=== PATIENT | male | born 1985 | race Caucasian/White ===

== ENCOUNTER 2019-03-03 08:30 | Inpatient (IN) | payer MEDICAID ==
[~2019-03-03] VITALS: Ht 172.7 cm; Wt 87.0 kg
[~2019-03-03 08:30] MED LIST: PANT40TA2 PO; POLY335015 PO; PRE5T PO
[2019-03-03 09:41] LABS: Basophils # (auto) 0.1 uL; Eosinophils # (auto) 0 uL; Lymphocytes # (auto) 0.8 uL
[2019-03-03 09:43] LABS: Basophils % (auto) 0.5 % (0.0-2.0); Eosinophils % (auto) 0.4 % (0.0-7.0); Hematocrit 43.4 % (41.0-53.0); Hemoglobin 14.5 g/dL (13.5-17.5); Mean Corpuscular Hemoglobin 25.1 pg (28.0-32.0); Mean Corpuscular Hgb Conc. 33.3 g/dL (32.0-36.0); Mean Corpuscular Volume 75.2 fL (80.0-100.0); Monocytes # (auto) 0.6 uL; Monocytes % (auto) 5.2 % (0.0-12.0); Neutrophils # (auto) 9.4 uL; Neutrophils % (auto) 86.9 % (37.0-80.0); Platelet Count (auto) 379 10^3/uL (140-450); Red Blood Cells 5.78 10^6/uL (4.5-5.90); Red Cell Distribution Width 16.6 % (11.8-14.3); White Blood Cell 10.8 10^3/uL (4.4-10.8)
[2019-03-03] MEDS ORDERED: ONDANSETRON HCL 4 MG/2 ML VIAL IV ONE (09:45)
[2019-03-03] MEDS ORDERED: MORPHINE SULFATE 4 MG/ML SYR/VIAL IV ONE (09:45)
[2019-03-03] MEDS ORDERED: SODIUM CHLORIDE 0.9% 1,000 ML IV ONE ×2 (09:45→11:45)
[2019-03-03] MEDS ORDERED: metroNIDAZOLE 500MG/100ML 100 ML IV ONE (10:00)
[2019-03-03] MEDS ORDERED: cefTRIAXone 1GM/50ML D5W 50 ML IV ONE (10:00)
[2019-03-03 10:04] LABS: Albumin 3.9 g/dL (3.4-5.0); Calcium 9.1 mg/dL (8.5-10.1); Potassium 4.1 mmol/L (3.5-5.1)
[2019-03-03 10:11] LABS: BUN/Creatinine Ratio 13.2; Bilirubin, Total 0.5 mg/dL (0.2-1.0); Total Protein 8.3 g/dL (6.4-8.2)
[2019-03-03 10:13] LABS: INR 0.96 (0.9-1.15); Partial Thromboplastin Time 27.7 sec (23.64-32.05)
[2019-03-03 10:54] LABS: Lactic Acid w/Reflex 2.5 mmol/L (0.4-2.0)
[2019-03-03] MEDS ORDERED: HYDROmorphone HCL 2 MG/ML VL IV ONE (11:00)
[2019-03-03] MEDS: HYDROmorphone HCL 2 MG/ML VL IV PRN ×3 (14:30→22:40)
[2019-03-03] MEDS: SODIUM CHLORIDE 0.9% 1,000 ML IV SCH (15:22)
[2019-03-03] MEDS: LEVOFLOXACIN 500MG 100 ML IV SCH (15:32)
--- NOTE | 2019-03-03 15:55 | NUR ---
Pt Arrived On Unit Pt ambulated from stretcher to room. Pt is a/ox4 with no s/s of distress or SOB. Pt states he is in some mild pain 4/10 after ambulating. Safety measures maintained with call light within reach, bed in lowest position and side rails up. Will continue to monitor for changes q1hr and prn. VS 121/71 BP R15, HR 78, 100% O2, 99.1 Temp
[2019-03-03 16:12] VITALS: BP 121/71
[2019-03-03] MEDS ORDERED: PNEUMOCOCCAL VACC POLYS 25 MCG/0.5 ML VIAL IM ONE (17:15)
[2019-03-03 18:49] LABS: Urine WBC None Seen /hpf (0 - 3)
--- NOTE | 2019-03-03 19:00 | NUR ---
Opening Shift Note Assumed care of patient, awake and alert. No S/S of distress/SOB or pain. Safety measures in place bed in lowest position, side rails x2 up, and call light within reach. Instructed on POC and to call for assist PRN, will continue to monitor for changes Q1hr and PRN.
[2019-03-03 19:16] LABS: Urine Bacteria NONE SEEN /hpf (None Seen); Urine Blood Negative /uL (Negative); Urine Mucus MANY (None Seen); Urine Specific Gravity 1.026 (1.001-1.035)
[2019-03-03 21:28] VITALS: BP 130/89
[2019-03-03] MEDS: HYDROCORTISONE SOD SUCC 100 MG/2ML INJ VIAL IV SCH (22:40)
[2019-03-03] MEDS: metroNIDAZOLE 500MG/100ML 100 ML IV SCH (22:41)
[2019-03-03] MEDS: FAMOTIDINE (10MG/ML) 2ML VL IV SCH (22:41)
[2019-03-04] MEDS: SODIUM CHLORIDE 0.9% 1,000 ML IV SCH ×3 (02:45→17:36)
[2019-03-04] MEDS: HYDROmorphone HCL 2 MG/ML VL IV PRN ×3 (02:50→17:39)
[2019-03-04 04:42] VITALS: BP 113/70
[2019-03-04 06:23] LABS: Basophils # (auto) 0 uL; Basophils % (auto) 0.1 % (0.0-2.0); Eosinophils # (auto) 0 uL; Eosinophils % (auto) 0.2 % (0.0-7.0); Hematocrit 39.2 % (41.0-53.0); Hemoglobin 13.1 g/dL (13.5-17.5); Lymphocytes # (auto) 0.8 uL; Lymphocytes % (auto) 9.1 % (10.0-50.0); Mean Corpuscular Hemoglobin 25.4 pg (28.0-32.0); Mean Corpuscular Hgb Conc. 33.5 g/dL (32.0-36.0); Mean Corpuscular Volume 75.8 fL (80.0-100.0); Monocytes % (auto) 11.8 % (0.0-12.0); Neutrophils # (auto) 6.7 uL; Neutrophils % (auto) 78.8 % (37.0-80.0); Platelet Count (auto) 326 10^3/uL (140-450); Red Blood Cells 5.17 10^6/uL (4.5-5.90); Red Cell Distribution Width 16.4 % (11.8-14.3); White Blood Cell 8.5 10^3/uL (4.4-10.8)
[2019-03-04] MEDS: metroNIDAZOLE 500MG/100ML 100 ML IV SCH ×3 (06:28→21:23)
[2019-03-04 06:38] LABS: Calcium 8.1 mg/dL (8.5-10.1); Potassium 4.1 mmol/L (3.5-5.1)
[2019-03-04 06:45] LABS: BUN/Creatinine Ratio 16.3; Bilirubin, Total 0.6 mg/dL (0.2-1.0); Total Protein 6.6 g/dL (6.4-8.2)
--- NOTE | 2019-03-04 07:29 | NUR ---
Opening Note Assumed pt care from [facility] nurse. Pt is a/ox4 with no s/s of distress or SOB. Pt is currently sitting up right in bed with no complaints. Pt states that he feel better compared to yesterday. Discussed POC with pt; pt verbalized understanding. Safety measures maintained with call light within reach, be din lowest position and side rails up. Will continue to monitor for changes q1hr and prn.
[2019-03-04] MEDS: HYDROCORTISONE SOD SUCC 100 MG/2ML INJ VIAL IV SCH ×2 (08:33→20:57)
[2019-03-04] MEDS: FAMOTIDINE (10MG/ML) 2ML VL IV SCH ×2 (08:33→20:57)
[2019-03-04] MEDS: LEVOFLOXACIN 500MG 100 ML IV SCH (08:33)
[2019-03-04 09:00] VITALS: BP 129/89
[2019-03-04] MEDS ORDERED: methylPREDNISolone SOD SUCC 125 MG/2 ML VL IV SCH (10:00)
--- NOTE | 2019-03-04 10:17 | NUR ---
Dr Kumar At bedside
[2019-03-04 13:00] VITALS: BP 119/82
[2019-03-04 17:00] VITALS: BP 124/79
--- NOTE | 2019-03-04 19:40 | NUR ---
received pt from day rn poc reviewed
[2019-03-04 22:16] VITALS: BP 124/84
--- NOTE | 2019-03-04 22:17 | NUR ---
resting comfortable no c/o pain at this time Signed: 03/04/19 at 2218 by Becki Fonseca RN
[2019-03-05 05:38] VITALS: BP 129/78
[2019-03-05] MEDS: metroNIDAZOLE 500MG/100ML 100 ML IV SCH (06:19)
[2019-03-05] MEDS: SODIUM CHLORIDE 0.9% 1,000 ML IV SCH ×2 (06:20→17:00)
[2019-03-05] MEDS: HYDROmorphone HCL 2 MG/ML VL IV PRN (06:21)
[2019-03-05 06:46] LABS: Basophils # (auto) 0 uL; Eosinophils # (auto) 0 uL; Hemoglobin 12.4 g/dL (13.5-17.5); Lymphocytes # (auto) 0.9 uL; Mean Corpuscular Hemoglobin 25.1 pg (28.0-32.0); Monocytes # (auto) 0.7 uL
[2019-03-05 06:50] LABS: Basophils % (auto) 0.4 % (0.0-2.0); Eosinophils % (auto) 0.4 % (0.0-7.0); Lymphocytes % (auto) 16.2 % (10.0-50.0); Mean Corpuscular Hgb Conc. 33.6 g/dL (32.0-36.0); Mean Corpuscular Volume 74.8 fL (80.0-100.0); Neutrophils # (auto) 3.9 uL; Platelet Count (auto) 292 10^3/uL (140-450); Red Blood Cells 4.94 10^6/uL (4.5-5.90); White Blood Cell 5.6 10^3/uL (4.4-10.8)
[2019-03-05 06:57] LABS: Albumin 2.9 g/dL (3.4-5.0); Calcium 8.3 mg/dL (8.5-10.1); Potassium 4.1 mmol/L (3.5-5.1)
--- NOTE | 2019-03-05 07:02 | NUR ---
report given to am nurse poc reviewed
[2019-03-05 07:03] LABS: BUN/Creatinine Ratio 10.2; Bilirubin, Total 0.5 mg/dL (0.2-1.0); Total Protein 6.6 g/dL (6.4-8.2)
--- NOTE | 2019-03-05 07:30 | NUR ---
Opening Shift Note Assumed care of patient, awake, alert, and oriented x4. No S/S of distress/SOB or pain. IV is in the right AC 22 gauge is asymptomatic, intact, patent, and saline locked. IV is in left AC 20 gauge and is asymptomatic, intact, patent, and infusing normal saline at 100 mL/hour. Bed is locked and in lowest position and call light is within reach. Instructed on POC and to call for assist PRN, and patient verbalized understanding. Will continue to monitor for changes Q1hr and PRN.
[2019-03-05 09:00] VITALS: BP 121/80
--- NOTE | 2019-03-05 09:00 | NUR ---
Dr. José MD, at bedside.
[2019-03-05] MEDS: LEVOFLOXACIN 500MG 100 ML IV SCH (10:00)
[2019-03-05] MEDS: HYDROCORTISONE SOD SUCC 100 MG/2ML INJ VIAL IV SCH (10:00)
[2019-03-05] MEDS: FAMOTIDINE (10MG/ML) 2ML VL IV SCH ×2 (10:00→21:31)
--- NOTE | 2019-03-05 11:40 | NUR ---
Estimated needs based on AJBW 74.2 kg-Increased factors for inflammatory bowel disease 3298-8014 kcal (30-35 kcal/kg) 89-103 g protein (1.2-1.4 g/kg) Addendum: 03/05/19 at [address] Amended: Links added.
[2019-03-05 13:00] VITALS: BP 133/95
--- NOTE | 2019-03-05 15:47 | NUR ---
Dr. Ellington, [employer] Special Agent, at bedside. New orders received.
[2019-03-05 17:00] VITALS: BP 141/99
--- NOTE | 2019-03-05 19:40 | NUR ---
Opening Shift Note Assumed care of patient, awake and alert. No S/S of distress/SOB or pain. Instructed on POC and to call for assist PRN, will continue to monitor for changes Q1hr and PRN.
[2019-03-06 01:27] VITALS: BP 122/81
[2019-03-06] MEDS: SODIUM CHLORIDE 0.9% 1,000 ML IV SCH (01:31)
[2019-03-06 05:36] VITALS: BP 125/82
[2019-03-06 07:07] LABS: Eosinophils # (auto) 0.1 uL; Lymphocytes # (auto) 1.2 uL; Monocytes # (auto) 0.8 uL; Neutrophils # (auto) 3.5 uL
[2019-03-06 07:10] LABS: Basophils # (auto) 0.1 uL; Eosinophils % (auto) 1.9 % (0.0-7.0); Hematocrit 37.3 % (41.0-53.0); Hemoglobin 12.2 g/dL (13.5-17.5); Lymphocytes % (auto) 20.9 % (10.0-50.0); Mean Corpuscular Hemoglobin 25.1 pg (28.0-32.0); Mean Corpuscular Hgb Conc. 32.8 g/dL (32.0-36.0); Mean Corpuscular Volume 76.4 fL (80.0-100.0); Monocytes % (auto) 13.5 % (0.0-12.0); Neutrophils % (auto) 62.7 % (37.0-80.0); Platelet Count (auto) 288 10^3/uL (140-450); Red Blood Cells 4.88 10^6/uL (4.5-5.90); White Blood Cell 5.6 10^3/uL (4.4-10.8)
[2019-03-06 07:28] LABS: Calcium 8.2 mg/dL (8.5-10.1); Potassium 3.2 mmol/L (3.5-5.1)
[2019-03-06 07:30] LABS: Albumin 2.9 g/dL (3.4-5.0); BUN/Creatinine Ratio 9.1
--- NOTE | 2019-03-06 07:30 | NUR ---
Opening Shift Note RECEIVED REPORT FROM NOC RN. Assumed care of patient, awake and alert. No S/S of distress/SOB or pain. BED IN LOWEST, LOCKED POSITION WITH SIDERAILS UP x2. Instructed on POC and to call for assist PRN, will continue to monitor for changes Q1hr and PRN.
[2019-03-06 07:33] LABS: Bilirubin, Total 0.5 mg/dL (0.2-1.0); Total Protein 6.5 g/dL (6.4-8.2)
[2019-03-06 08:20] VITALS: BP 133/83
[2019-03-06] MEDS ORDERED: POTASSIUM CHLORIDE 40 MEQ, LIDOCAINE 1% (LOCAL ANESTH.) 4 ML in SODIUM CHL 0.9% 100 ML IV ONE (09:15)
[2019-03-06 10:00] VITALS: BP 133/83
[2019-03-06] MEDS ORDERED: predniSONE 20 MG TAB PO SCH (10:00)
[2019-03-06] MEDS: FAMOTIDINE (10MG/ML) 2ML VL IV SCH (10:23)
--- NOTE | 2019-03-06 13:20 | NUR ---
Discharge instructions given as ordered. Encourage to follow up with PMD as instructed. All questions and concerns addressed. Patient verbalized understanding. Medication reconciliation form completed and copy given to patient. IV removed with catheter intact, pressure dressing applied. Patient taken to vehicle via wheelchair with all personal belongings, accompanied by staff. No distress noted at time of departure.
== END 2019-03-06 13:20 | disposition home or self-care (01) | DRG 245 ==
LOC: ER 08:30 → OVERFLOW 08:31 → EAST 16:02
PROVIDERS: ADMIT Nurse Practitioner Acute Care; ATTEND Internal Medicine
DX: K50.10 Crohn's disease of large intestine without complications (principal); E87.2 Acidosis; E44.0 Moderate protein-calorie malnutrition; E88.09 Other disorders of plasma-protein metabolism, not elsewhere classified; E66.9 Obesity, unspecified; D64.9 Anemia, unspecified; Z83.3 Family history of diabetes mellitus; Z82.49 Family history of ischemic heart disease and other diseases of the circulatory system; Z68.29 Body mass index [BMI] 29.0-29.9, adult; Z28.21 Immunization not carried out because of patient refusal
CPT/HCPCS: 36415; 71045; 74176; 80053; 81001; 82150; 83605; 83690; 85025; 85610; 85730; 87040; 96361; 96365; 96368; 96375; 99291; G0378; J0696; J1956; J2001; J2405; J3490

== ENCOUNTER 2019-05-13 06:06 | Inpatient (IN) | payer MEDICAID ==
[~2019-05-13] VITALS: Ht 172.7 cm; Wt 103.8 kg
[2019-05-13] MEDS ORDERED: HYDROmorphone HCL 2 MG/ML VL IV ONE (06:30)
[2019-05-13] MEDS ORDERED: ONDANSETRON HCL 4 MG/2 ML VIAL IV ONE (06:30)
[2019-05-13] MEDS ORDERED: PIPERACILLIN-TAZOB 3.375GM 100 ML IV ONE (07:30)
[2019-05-13] MEDS ORDERED: metroNIDAZOLE 500MG/100ML 100 ML IV ONE (07:30)
[2019-05-13 07:48] LABS: Eosinophils # (auto) 0.1 uL; Mean Corpuscular Volume 77.2 fL (80.0-100.0); White Blood Cell 9.7 10^3/uL (4.4-10.8)
[2019-05-13 07:50] LABS: Basophils # (auto) 0.1 uL; Basophils % (auto) 0.6 % (0.0-2.0); Eosinophils % (auto) 1.3 % (0.0-7.0); Hematocrit 41.1 % (41.0-53.0); Hemoglobin 13.8 g/dL (13.5-17.5); Lymphocytes # (auto) 0.6 uL; Mean Corpuscular Hemoglobin 25.9 pg (28.0-32.0); Mean Corpuscular Hgb Conc. 33.6 g/dL (32.0-36.0); Monocytes # (auto) 0.9 uL; Monocytes % (auto) 8.8 % (0.0-12.0); Neutrophils # (auto) 8.1 uL; Neutrophils % (auto) 83.3 % (37.0-80.0); Nucleated Red Blood Cells % 0.1 %; Platelet Count (auto) 341 10^3/uL (140-450); Red Blood Cells 5.33 10^6/uL (4.5-5.90); Red Cell Distribution Width 17.7 % (11.8-14.3)
[2019-05-13 08:01] LABS: Albumin 3.4 g/dL (3.4-5.0); Calcium 8.3 mg/dL (8.5-10.1)
[2019-05-13 08:04] LABS: BUN/Creatinine Ratio 15.6; Bilirubin, Total 0.3 mg/dL (0.2-1.0); Total Protein 7.5 g/dL (6.4-8.2)
[2019-05-13] MEDS ORDERED: ONDANSETRON HCL 4 MG/2 ML VIAL IV PRN (09:00)
[2019-05-13] MEDS: FAMOTIDINE (10MG/ML) 2ML VL IV SCH ×2 (09:46→22:17)
[2019-05-13] MEDS: D5W/SOD CHL 0.45% 1,000 ML IV SCH ×2 (09:46→17:44)
[2019-05-13] MEDS: LEVOFLOXACIN 500MG 100 ML IV SCH (09:46)
[2019-05-13] MEDS: HYDROmorphone HCL 2 MG/ML VL IV PRN ×3 (09:47→19:00)
[2019-05-13] MEDS: HYDROCORTISONE SOD SUCC 100 MG/2ML INJ VIAL IV SCH ×2 (09:47→22:17)
--- NOTE | 2019-05-13 14:00 | NUR ---
Opening Shift Note Assumed care of patient, who is alert and oriented x4. No S/S of distress/SOB. Patient reporting severe abdominal pain 10/10 on adult pain scale sharp and cramping in sensation. Will medicate per MD order. Bed in lowest position with 2x side rails up for safety. Call light is within reach. Instructed on POC and to call for assist PRN, will continue to monitor for changes Q1hr and PRN.
[2019-05-13] MEDS: metroNIDAZOLE 500MG/100ML 100 ML IV SCH ×2 (14:41→22:17)
[2019-05-13 17:00] VITALS: BP 105/60
--- NOTE | 2019-05-13 19:15 | NUR ---
Opening Shift Note Assumed care of patient, awake and alert. No S/S of distress/SOB or pain. Insructed on POC and to call for assist PRN, will continue to monitor for changes Q1hr and PRN. Signed: 05/14/19 at 0648 by DOUG CASAS SN <Co-Signature Required> Co-Signed: 05/14/19 at 0648 by Perri Arthur RN
[2019-05-13 22:00] VITALS: BP 100/66
[2019-05-14] MEDS: D5W/SOD CHL 0.45% 1,000 ML IV SCH ×3 (01:48→18:03)
[2019-05-14 05:00] VITALS: BP 121/66
[2019-05-14] MEDS: metroNIDAZOLE 500MG/100ML 100 ML IV SCH ×3 (06:16→21:57)
--- NOTE | 2019-05-14 07:25 | NUR ---
Opening Note Received report from weight shifter RN. Patient is awake, alert and oriented x4. Patient is on room air, respirations even and unlabored. Patient states abdominal pain 8/10 and is requesting pain medications. Will medicate per orders. Reviewed plan of care with patient, patient verbalized understanding. Patient is NPO. Bed in low and locked position, call light within reach. Will continue to monitor Q1 hour and PRN.
[2019-05-14 08:00] VITALS: BP 101/60
[2019-05-14] MEDS: HYDROmorphone HCL 2 MG/ML VL IV PRN ×3 (08:36→20:27)
[2019-05-14] MEDS: FAMOTIDINE (10MG/ML) 2ML VL IV SCH ×2 (09:24→21:57)
[2019-05-14] MEDS: HYDROCORTISONE SOD SUCC 100 MG/2ML INJ VIAL IV SCH ×2 (09:24→21:57)
[2019-05-14] MEDS: LEVOFLOXACIN 500MG 100 ML IV SCH (09:24)
--- NOTE | 2019-05-14 09:55 | NUR ---
Dr. Kumar at bedside Discussing plan of care with patient. New orders received to advance diet as tolerated. Will continue to monitor Q1 hour and PRN.
[2019-05-14 12:00] VITALS: BP 112/74
--- NOTE | 2019-05-14 12:44 | NUR ---
Dr. Ellington at bedside New orders received to change patient diet to NPO. Will implement orders. Will continue to monitor Q1 hour and PRN.
[2019-05-14 17:00] VITALS: BP 125/71
--- NOTE | 2019-05-14 19:05 | NUR ---
Closing Note Report given to clinical partner RN. No signs or symptoms of distress noted at this time.
--- NOTE | 2019-05-14 19:35 | NUR ---
Opening Shift Note Report received from day shift RN. Assumed care of patient, awake and A&O x4. No S/S of distress/SOB noted. Patient reports tolerable abdominal pain at this time and denies any nausea or vomiting. Bed locked in the lowest position with side rails up x2 and call light left within reach. Instructed on POC and to call for assist PRN, will continue to monitor for changes Q1hr and PRN.
[2019-05-14 22:04] VITALS: BP 120/76
[2019-05-15] MEDS: D5W/SOD CHL 0.45% 1,000 ML IV SCH ×3 (01:15→16:58)
[2019-05-15] MEDS: HYDROmorphone HCL 2 MG/ML VL IV PRN (01:29)
[2019-05-15 05:05] LABS: Basophils # (auto) 0 uL; Eosinophils # (auto) 0 uL; Hemoglobin 11.6 g/dL (13.5-17.5); Lymphocytes # (auto) 0.9 uL; Monocytes # (auto) 0.6 uL; Neutrophils # (auto) 4.9 uL; White Blood Cell 6.5 10^3/uL (4.4-10.8)
[2019-05-15 05:07] LABS: Basophils % (auto) 0.3 % (0.0-2.0); Eosinophils % (auto) 0.1 % (0.0-7.0); Hematocrit 34.9 % (41.0-53.0); Lymphocytes % (auto) 13.5 % (10.0-50.0); Mean Corpuscular Hemoglobin 25.6 pg (28.0-32.0); Mean Corpuscular Hgb Conc. 33.1 g/dL (32.0-36.0); Mean Corpuscular Volume 77.4 fL (80.0-100.0); Neutrophils % (auto) 76.1 % (37.0-80.0); Nucleated Red Blood Cells % 0.1 %; Platelet Count (auto) 297 10^3/uL (140-450); Red Blood Cells 4.51 10^6/uL (4.5-5.90); Red Cell Distribution Width 17.8 % (11.8-14.3)
[2019-05-15 05:15] VITALS: BP 117/60
[2019-05-15 05:28] LABS: Albumin 2.8 g/dL (3.4-5.0); Calcium 8.2 mg/dL (8.5-10.1); Potassium 3.8 mmol/L (3.5-5.1)
[2019-05-15 05:31] LABS: BUN/Creatinine Ratio 18.6; Bilirubin, Total 0.3 mg/dL (0.2-1.0); Total Protein 6.5 g/dL (6.4-8.2)
[2019-05-15] MEDS: metroNIDAZOLE 500MG/100ML 100 ML IV SCH ×3 (05:37→22:00)
--- NOTE | 2019-05-15 07:50 | NUR ---
Opening Note Received report from weight shifter RN. Patient is awake, alert and oriented x4. Patient is on room air, respirations even and unlabored. Patient denies pain at this time. Will medicate per orders. Reviewed plan of care with patient, patient verbalized understanding. Patient is NPO. Bed in low and locked position, call light within reach. Will continue to monitor Q1 hour and PRN.
[2019-05-15 08:00] VITALS: BP 118/64
[2019-05-15] MEDS: LEVOFLOXACIN 500MG 100 ML IV SCH (09:37)
[2019-05-15] MEDS: FAMOTIDINE (10MG/ML) 2ML VL IV SCH ×2 (09:37→22:00)
[2019-05-15] MEDS: HYDROCORTISONE SOD SUCC 100 MG/2ML INJ VIAL IV SCH ×2 (09:37→22:00)
--- NOTE | 2019-05-15 09:45 | NUR ---
DR. GARZA AT BEDSIDE DR. GARZA WANTING TO CLARIFY OK TO ADVANCE DIET WITH DR. ALEGRE. DR. ALEGRE PAGED AWAITING RETURN CALL. PRIMARY RN SUMMER INFORMED
--- NOTE | 2019-05-15 10:30 | NUR ---
DR. ALEGRE RETURNED PAGED SPOKE WITH DR. ALEGRE. SILVINO TO ADVANCE PATIENT TO CLEAR LIQUID DIET. PRIMARY RN INFORMED. ORDERS CARRIED OUT IN [facility].
[2019-05-15 12:00] VITALS: BP 135/81
--- NOTE | 2019-05-15 15:42 | NUR ---
NUTRITION ASSESSMENT NOTES Please refer to link notes of nutrition screen form filed under the intervention section of the plan of care for further details. Est. Needs: 1550 kcal to 2050 kcal (5-20 kcal/kgBW), 70 gms to 84 gms pro (1.0-1.2 gms/kgIBW: 79 kg). Will continue to monitor pertinent labs and reassess nutrient need prn Thank you. Addendum: 05/15/19 at [address] Amended: Links added.
--- NOTE | 2019-05-15 16:30 | NUR ---
Patient Rounds Patient rounds done. Patient is sitting in bed reading, no signs of distress at this time, respirations are even and unlabored, and states he has no pain. IV Fluids replaced and resumed per MD orders. Bed in lowest position, brakes locked, and call light within reach. Will continue to monitor. Signed: 05/15/19 at 1657 by DOUG DELONG SN <Co-Signature Required> Co-Signed: 05/15/19 at 7 by LICHA CASTRO RN RN
[2019-05-15 17:00] VITALS: BP 129/79
--- NOTE | 2019-05-15 20:00 | NUR ---
Opening Shift Note Assumed care of patient, awake, AAOX4. On room air and ambulatory. No S/S of distress/SOB or pain. Bed in lowest locked position, side rails up x2, call light within reach. Instructed on POC and to call for assist PRN, will continue to monitor for changes Q1hr and PRN.
[2019-05-15 22:00] VITALS: BP 121/77
[2019-05-16] MEDS: D5W/SOD CHL 0.45% 1,000 ML IV SCH ×3 (01:15→20:11)
[2019-05-16 05:00] VITALS: BP 112/74
[2019-05-16] MEDS: metroNIDAZOLE 500MG/100ML 100 ML IV SCH ×3 (05:53→21:49)
[2019-05-16 06:35] LABS: Basophils # (auto) 0 uL; Basophils % (auto) 0.4 % (0.0-2.0); Eosinophils # (auto) 0 uL; Mean Corpuscular Hgb Conc. 33.2 g/dL (32.0-36.0); Monocytes # (auto) 0.7 uL
[2019-05-16 06:37] LABS: Eosinophils % (auto) 0.2 % (0.0-7.0); Hematocrit 35.5 % (41.0-53.0); Hemoglobin 11.8 g/dL (13.5-17.5); Lymphocytes % (auto) 13.5 % (10.0-50.0); Mean Corpuscular Hemoglobin 25.4 pg (28.0-32.0); Mean Corpuscular Volume 76.5 fL (80.0-100.0); Monocytes % (auto) 10.3 % (0.0-12.0); Neutrophils # (auto) 5.4 uL; Neutrophils % (auto) 75.6 % (37.0-80.0); Platelet Count (auto) 304 10^3/uL (140-450); Red Blood Cells 4.64 10^6/uL (4.5-5.90); Red Cell Distribution Width 17.3 % (11.8-14.3); White Blood Cell 7.1 10^3/uL (4.4-10.8)
[2019-05-16 06:54] LABS: Potassium 3.6 mmol/L (3.5-5.1)
[2019-05-16 07:01] LABS: Albumin 2.8 g/dL (3.4-5.0); BUN/Creatinine Ratio 11.9; Bilirubin, Total 0.3 mg/dL (0.2-1.0); Calcium 8.1 mg/dL (8.5-10.1); Total Protein 6.6 g/dL (6.4-8.2)
--- NOTE | 2019-05-16 07:30 | NUR ---
Opening Shift Note Assuming care of patient at this time. Patient resting in bed. Patient shows no signs or symptoms of distress or shortness of breath. Patient denies pain. Bed is locked and lowered with side rails up x2. Instructed patient on the plan of care for today and to call for assistance as needed. Call light within reach. Will continue to round hourly and as needed.
[2019-05-16 08:00] VITALS: BP 124/63
--- NOTE | 2019-05-16 08:30 | NUR ---
Dr. José Kumar at nurses' station at this time. Patient needs insurance authorization for a medication. Dr. Kumar filled out necessary form that needs to be sent to insurance for authorization. Will give to social work faculty member.
--- NOTE | 2019-05-16 09:00 | NUR ---
Airframe Technical Officer Authorization form given to Mayelin Solano, in child protective services social worker. Awaiting information regarding authorization.
[2019-05-16] MEDS: FAMOTIDINE (10MG/ML) 2ML VL IV SCH ×2 (09:53→21:50)
[2019-05-16] MEDS: LEVOFLOXACIN 500MG 100 ML IV SCH (09:54)
[2019-05-16] MEDS: HYDROCORTISONE SOD SUCC 100 MG/2ML INJ VIAL IV SCH (09:54)
[2019-05-16 11:58] VITALS: BP 138/93
--- NOTE | 2019-05-16 12:05 | NUR ---
Medication Authorization Received a call from Mayelin Solano. Insurance has authorized medication recommended by Dr. Kumar. Patient notified.
--- NOTE | 2019-05-16 16:27 | NUR ---
Dr. Ellington at station Dr. Ellington at station. New orders given. Patient is clear for discharge from a GI standpoint once he can tolerate regular food.
[2019-05-16 16:55] VITALS: BP 138/92
--- NOTE | 2019-05-16 19:29 | NUR ---
Closing Shift Note Patient resting in bed. No distress noted. Will endorse care to the shift leader RN.
--- NOTE | 2019-05-16 19:40 | NUR ---
Opening Shift Note Assumed care of patient, awake, AAOx4. No S/S of distress/SOB or pain. On room air and ambulatory. Bed in lowest locked position, side rails up x2, call light within reach. Instructed on POC and to call for assist PRN, will continue to monitor for changes Q1hr and PRN.
--- NOTE | 2019-05-16 20:00 | NUR ---
PT REPORTS HE IS TOLERATING FULL LIQUID DIET WELL WITH NO N/V.
[2019-05-16 21:08] VITALS: BP 128/77
--- NOTE | 2019-05-16 21:23 | NUR ---
ENDORSED CARE TO NOC SHIFT MILLIE GLOVER. PATIENT RESTING IN BED, NO ACUTE S/S OF DISTRESS, SOB OR PAIN NOTED.
[2019-05-17] MEDS: D5W/SOD CHL 0.45% 1,000 ML IV SCH ×2 (03:32→09:15)
[2019-05-17 04:11] VITALS: BP 138/87
[2019-05-17] MEDS: metroNIDAZOLE 500MG/100ML 100 ML IV SCH (05:55)
--- NOTE | 2019-05-17 07:40 | NUR ---
OPENING SHIFT NOTE Assumed care of patient alert and oriented currently in bed. Patient denies any pain at this time, no s/s of distress or SOB noted/reported. Patient instructed on POC for the day, patient verbalized understanding. Bed in low position, locked, and call light within reach. Patient instructed on calling for assistance as needed, will continue to monitor hourly and PRN. Signed: 05/17/19 at 1103 by DOUG ACUNA <Co-Signature Required> Co-Signed: 05/17/19 at 1103 by LICHA CASTRO RN RN
[2019-05-17 09:00] VITALS: BP 123/78
[2019-05-17] MEDS: FAMOTIDINE (10MG/ML) 2ML VL IV SCH (09:16)
[2019-05-17] MEDS: LEVOFLOXACIN 500MG 100 ML IV SCH (09:16)
[2019-05-17] MEDS ORDERED: predniSONE 20 MG TAB PO SCH (10:00)
--- NOTE | 2019-05-17 10:39 | NUR ---
DR GARZA AT BEDSIDE PATIENT INFORMED OF POC BY DOCTOR. Signed: 05/17/19 at 1104 by DOUG ACUNA <Co-Signature Required> Co-Signed: 05/17/19 at 1104 by LICHA CASTRO RN RN
--- NOTE | 2019-05-17 10:51 | NUR ---
CALLED PHARMACY Called [facility] on [address] to verify that new medication ordered by the doctor is available. Medication in stock per pharmacy. Patient will be provided with authorization form from [facility] and new prescription. Signed: 05/17/19 at 1102 by DOUG ACUNA <Co-Signature Required> Co-Signed: 05/17/19 at 1102 by LICHA CASTRO RN RN
[2019-05-17 11:45] VITALS: BP 123/78
--- NOTE | 2019-05-17 12:27 | NUR ---
Discharge instructions given as ordered. Encourage to follow up with PMD as instructed. New prescription given to patient and new medication information provided, patient verbalized understanding. All questions and concerns addressed. IV removed with catheter intact, pressure dressing applied. Patient refused to be taken to vehicle via wheelchair, patient ambulating with all personal belongings. No distress noted at time of departure. Signed: 05/17/19 at 1230 by DOUG ACUNA <Co-Signature Required> Co-Signed: 05/17/19 at 1230 by LICHA CASTRO RN RN
== END 2019-05-17 12:24 | disposition home or self-care (01) | DRG 245 ==
LOC: ER 06:06 → OVERFLOW 06:07 → WEST WING 13:50
PROVIDERS: ADMIT Nurse Practitioner Acute Care; ATTEND Internal Medicine
DX: K50.912 Crohn's disease, unspecified, with intestinal obstruction (principal); E44.0 Moderate protein-calorie malnutrition; E66.01 Morbid (severe) obesity due to excess calories; Z87.442 Personal history of urinary calculi; Z68.34 Body mass index [BMI] 34.0-34.9, adult; Z83.3 Family history of diabetes mellitus; Z82.49 Family history of ischemic heart disease and other diseases of the circulatory system; Z84.1 Family history of disorders of kidney and ureter
CPT/HCPCS: 36415; 74176; 80053; 82150; 83605; 83690; 85025; 87040; 96365; 96367; 96375; 99291; G0378; J1956; J2405; J2543; J3490

== ENCOUNTER 2020-05-12 12:15 | Inpatient (IN) | payer MEDICAID ==
[~2020-05-12] VITALS: Ht 175.3 cm; Wt 97.0 kg
[~2020-05-12 12:15] MED LIST changes: -PRE5T PO
[2020-05-12] MEDS ORDERED: PANTOPRAZOLE 40 MG/10 ML VIAL INJ IV STA (12:58)
[2020-05-12] MEDS ORDERED: SODIUM CHLORIDE 0.9% 500 ML IVB ONE (13:00)
[2020-05-12] MEDS ORDERED: HYDROmorphone HCL 2 MG/ML VL IV ONE (13:00)
[2020-05-12] MEDS ORDERED: ONDANSETRON HCL 4 MG/2 ML VIAL IV ONE (13:00)
[2020-05-12 13:32] LABS: Basophils # (auto) 0 10 ^3/uL (0-0.2); Basophils % (auto) 0.4 % (0.0-2.0); Nucleated Red Blood Cells % 0.1 %; Red Cell Distribution Width 15.6 % (11.8-14.3)
[2020-05-12 13:34] LABS: Eosinophils # (auto) 0.1 10 ^3/uL (0-0.8); Eosinophils % (auto) 1.3 % (0.0-7.0); Hematocrit 45.6 % (41.0-53.0); Lymphocytes % (auto) 8.9 % (10.0-50.0); Mean Corpuscular Hemoglobin 26.5 pg (28.0-32.0); Mean Corpuscular Hgb Conc. 32.8 g/dL (32.0-36.0); Mean Corpuscular Volume 80.8 fL (80.0-100.0); Monocytes % (auto) 8.4 % (0.0-12.0); Neutrophils # (auto) 9.3 10 ^3/uL (1.6-8.6); Platelet Count (auto) 345 10^3/uL (140-450); Red Blood Cells 5.64 10^6/uL (4.5-5.90); White Blood Cell 11.5 10^3/uL (4.4-10.8)
[2020-05-12 13:54] LABS: Calcium 8.9 mg/dL (8.5-10.1); Potassium 4.5 mmol/L (3.5-5.1)
[2020-05-12 13:59] LABS: BUN/Creatinine Ratio 14.5
[2020-05-12 14:00] LABS: Albumin 3.7 g/dL (3.4-5.0); Bilirubin, Total 0.4 mg/dL (0.2-1.0); Total Protein 8.4 g/dL (6.4-8.2)
[2020-05-12] MEDS ORDERED: PIPERACILLIN-TAZOB 3.375GM 100 ML IV ONE (14:30)
[2020-05-12] MEDS ORDERED: metroNIDAZOLE 500MG/100ML 100 ML IV ONE (14:30)
[2020-05-12] MEDS ORDERED: methylPREDNISolone SOD SUCC 40 MG/ML VL IM SCH (15:30)
[2020-05-12] MEDS: D5W/SOD CHL 0.45% 1,000 ML IV SCH (15:30)
[2020-05-12] MEDS ORDERED: MORPHINE SULF INJ 2 MG/ML SYRINGE 1ML IV PRN ×2 (15:30→15:45)
[2020-05-12] MEDS ORDERED: NITROGLYCERIN 0.4 MG SL TAB SL PRN (15:30)
[2020-05-12] MEDS ORDERED: ONDANSETRON HCL 4 MG/2 ML VIAL IV PRN ×2 (15:30→18:00)
[2020-05-12] MEDS: levoFLOXacin 500MG 100 ML IV SCH (15:30)
[2020-05-12] MEDS: methylPREDNISolone SOD SUCC 125 MG/2 ML VL IV SCH ×2 (16:35→21:50)
[2020-05-12] MEDS: HYDROmorphone HCL 2 MG/ML VL IV PRN ×3 (16:50→23:04)
--- NOTE | 2020-05-12 18:55 | NUR ---
Telemetry admit from ER LOU SCALESSHAR admitted to Telemetry unit, NO SBAR received. Patient oriented to Sheila Meyer, primary RN, unit, room, bed, and unit policies regarding patient care and visiting hours. Patient now on continuous telemetry monitoring, tele box # [id number] and telemetry reading on arrival to unit is sinus rhythm in the 80's. NO distress noted. Patient reports 8/10 pain, will medicate per MD orders. Bed locked in lowest position, side rails up x2, call light within reach. Will endorse admission to retail shift leader RN.
--- NOTE | 2020-05-12 20:00 | NUR ---
ASSUMED CARE, PT. AWAKE, NO C/O PAIN AT THIS TIME, NO N/V, NO SOB.
[2020-05-12 20:54] LABS: Urine Bacteria NONE SEEN /hpf (None Seen); Urine Blood Negative /uL (Negative); Urine Hyaline Cast FEW /lpf (0 - 2); Urine Specific Gravity 1.024 (1.001-1.035); Urine WBC 2 /hpf (0 - 3)
[2020-05-12] MEDS: metroNIDAZOLE 500MG/100ML 100 ML IV SCH (21:50)
[2020-05-12 22:00] VITALS: BP 119/66
[2020-05-13 05:14] VITALS: BP 106/68
[2020-05-13] MEDS: HYDROmorphone HCL 2 MG/ML VL IV PRN ×3 (05:14→16:38)
[2020-05-13] MEDS: metroNIDAZOLE 500MG/100ML 100 ML IV SCH ×3 (05:32→21:44)
[2020-05-13 06:42] LABS: Basophils # (auto) 0 10 ^3/uL (0-0.2); Eosinophils # (auto) 0 10 ^3/uL (0-0.8); Lymphocytes # (auto) 0.7 10 ^3/uL (0.4-5.4); Monocytes # (auto) 0.4 10 ^3/uL (0-1.3)
[2020-05-13 06:44] LABS: Hematocrit 41.6 % (41.0-53.0); Hemoglobin 13.5 g/dL (13.5-17.5); Lymphocytes % (auto) 5.8 % (10.0-50.0); Mean Corpuscular Hemoglobin 26.3 pg (28.0-32.0); Mean Corpuscular Hgb Conc. 32.5 g/dL (32.0-36.0); Mean Corpuscular Volume 81.1 fL (80.0-100.0); Monocytes % (auto) 3.1 % (0.0-12.0); Neutrophils # (auto) 10.9 10 ^3/uL (1.6-8.6); Neutrophils % (auto) 91.1 % (37.0-80.0); Nucleated Red Blood Cells % 0.1 %; Platelet Count (auto) 332 10^3/uL (140-450); Red Blood Cells 5.13 10^6/uL (4.5-5.90); Red Cell Distribution Width 15.6 % (11.8-14.3)
[2020-05-13 06:57] LABS: INR 1.05 (0.9-1.15); Partial Thromboplastin Time 29.1 sec (23.0-31.2)
[2020-05-13 06:58] LABS: Potassium 4.5 mmol/L (3.5-5.1)
[2020-05-13 07:06] LABS: BUN/Creatinine Ratio 23.3; Calcium 8.9 mg/dL (8.5-10.1)
[2020-05-13] MEDS ORDERED: GASTROGRAFIN 120 ML SOL ONE (07:32)
[2020-05-13 09:00] VITALS: BP 115/71
[2020-05-13] MEDS: methylPREDNISolone SOD SUCC 125 MG/2 ML VL IV SCH ×2 (09:41→21:44)
[2020-05-13] MEDS: PANTOPRAZOLE 40 MG/10 ML VIAL INJ IV SCH (09:45)
[2020-05-13] MEDS: levoFLOXacin 500MG 100 ML IV SCH (10:19)
[2020-05-13 13:00] VITALS: BP 120/70
[2020-05-13 16:57] VITALS: BP 121/67
[2020-05-13] MEDS: D5W/SOD CHL 0.45% 1,000 ML IV SCH (17:49)
--- NOTE | 2020-05-13 19:35 | NUR ---
Opening Shift Note Assumed care of patient, awake and alert. No S/S of distress/SOB or pain. Fall, aspiration, and safety precautions in place. Call light within reach and able to use. Instructed on POC and to call for assist PRN, patient verbalized understanding and in agreement. Will continue to monitor for changes Q1hr and PRN.
[2020-05-13 22:00] VITALS: BP 141/83
[2020-05-14] MEDS: HYDROmorphone HCL 2 MG/ML VL IV PRN (04:54)
[2020-05-14 05:00] VITALS: BP 118/75
[2020-05-14] MEDS: metroNIDAZOLE 500MG/100ML 100 ML IV SCH ×3 (05:00→23:09)
[2020-05-14 07:06] LABS: Basophils # (auto) 0 10 ^3/uL (0-0.2); Eosinophils # (auto) 0 10 ^3/uL (0-0.8); Monocytes # (auto) 0.5 10 ^3/uL (0-1.3)
[2020-05-14 07:15] LABS: Hemoglobin 13.5 g/dL (13.5-17.5); Lymphocytes # (auto) 0.9 10 ^3/uL (0.4-5.4); Lymphocytes % (auto) 6.9 % (10.0-50.0); Mean Corpuscular Hemoglobin 27.1 pg (28.0-32.0); Mean Corpuscular Hgb Conc. 33.6 g/dL (32.0-36.0); Mean Corpuscular Volume 80.5 fL (80.0-100.0); Monocytes % (auto) 4.1 % (0.0-12.0); Platelet Count (auto) 331 10^3/uL (140-450); Red Blood Cells 4.97 10^6/uL (4.5-5.90); Red Cell Distribution Width 15.9 % (11.8-14.3); White Blood Cell 12.4 10^3/uL (4.4-10.8)
[2020-05-14 07:31] LABS: Potassium 4.4 mmol/L (3.5-5.1)
[2020-05-14 07:42] LABS: BUN/Creatinine Ratio 32.2; Calcium 8.6 mg/dL (8.5-10.1)
[2020-05-14 08:51] VITALS: BP 123/63
[2020-05-14] MEDS: levoFLOXacin 500MG 100 ML IV SCH (11:06)
[2020-05-14] MEDS: PANTOPRAZOLE 40 MG/10 ML VIAL INJ IV SCH (11:07)
[2020-05-14] MEDS: methylPREDNISolone SOD SUCC 125 MG/2 ML VL IV SCH ×2 (11:10→23:10)
[2020-05-14] MEDS: HYDROCORTISONE 2.5% TOPICAL CREAM 30GM TUBE PR SCH ×2 (12:49→23:25)
[2020-05-14 13:00] VITALS: BP 123/75
[2020-05-14 17:17] VITALS: BP 122/78
--- NOTE | 2020-05-14 19:30 | NUR ---
Opening shift note Assumed care of patient from day shift RN. Patient A&Ox4, respirations even and non-labored with no s/s of distress or c/o pain at this time. Discussed POC with patient who verbalized understanding, safety precautions in place, bed in lowest locked position with 2 side rails up, call light within reach. Will continue to monitor Q1hr and PRN.
--- NOTE | 2020-05-14 21:20 | NUR ---
Dietary request faxed Soft diet order placed per Dr. Kermit Fischer Patient aware to call dietary in the morning.
[2020-05-14 22:00] VITALS: BP 118/82
[2020-05-14 22:06] VITALS: BP 118/82
[2020-05-15 05:59] VITALS: BP 113/74
[2020-05-15] MEDS: metroNIDAZOLE 500MG/100ML 100 ML IV SCH (06:04)
--- NOTE | 2020-05-15 07:45 | NUR ---
Assumed care of patient from placement interviewer RN. Patient A&Ox4, respirations even and non-labored with no s/s of distress or c/o pain at this time. Discussed POC with patient who verbalized understanding, safety precautions in place, bed in lowest locked position with 2 side rails up, call light within reach. Will continue to monitor Q1hr and PRN.
[2020-05-15 09:00] VITALS: BP 125/81
[2020-05-15] MEDS: levoFLOXacin 500MG 100 ML IV SCH (09:23)
[2020-05-15] MEDS: PANTOPRAZOLE 40 MG/10 ML VIAL INJ IV SCH (09:26)
[2020-05-15] MEDS: methylPREDNISolone SOD SUCC 125 MG/2 ML VL IV SCH (09:40)
[2020-05-15] MEDS: HYDROCORTISONE 2.5% TOPICAL CREAM 30GM TUBE PR SCH (10:20)
[2020-05-15 12:16] LABS: Basophils # (auto) 0 10 ^3/uL (0-0.2); Basophils % (auto) 0.3 % (0.0-2.0); Eosinophils # (auto) 0 10 ^3/uL (0-0.8); Lymphocytes # (auto) 0.9 10 ^3/uL (0.4-5.4); Monocytes # (auto) 0.8 10 ^3/uL (0-1.3); Monocytes % (auto) 6.4 % (0.0-12.0)
[2020-05-15 12:17] LABS: Eosinophils % (auto) 0.1 % (0.0-7.0); Hematocrit 43.6 % (41.0-53.0); Hemoglobin 14.4 g/dL (13.5-17.5); Lymphocytes % (auto) 6.6 % (10.0-50.0); Mean Corpuscular Hemoglobin 26.4 pg (28.0-32.0); Mean Corpuscular Hgb Conc. 33.1 g/dL (32.0-36.0); Neutrophils # (auto) 11.1 10 ^3/uL (1.6-8.6); Neutrophils % (auto) 86.6 % (37.0-80.0); Platelet Count (auto) 388 10^3/uL (140-450); Red Blood Cells 5.46 10^6/uL (4.5-5.90); Red Cell Distribution Width 15.7 % (11.8-14.3); White Blood Cell 12.8 10^3/uL (4.4-10.8)
[2020-05-15 12:37] VITALS: BP 123/79
[2020-05-15] MEDS ORDERED: LEVO500T21 PO (12:37)
[2020-05-15] MEDS ORDERED: METR500T PO (12:37)
[2020-05-15] MEDS ORDERED: PANT40TA2 PO (12:37)
[2020-05-15] MEDS ORDERED: PRED20TA2 PO (12:37)
[2020-05-15 12:43] LABS: BUN/Creatinine Ratio 25.5; Calcium 8.6 mg/dL (8.5-10.1); Potassium 3.9 mmol/L (3.5-5.1)
== END 2020-05-15 13:15 | disposition home or self-care (01) | DRG 245 ==
LOC: ER 12:15 → TELE 12:16 → TELE-WESTW 18:33
PROVIDERS: ADMIT Internal Medicine; ATTEND Internal Medicine
DX: K50.012 Crohn's disease of small intestine with intestinal obstruction (principal); E66.01 Morbid (severe) obesity due to excess calories; Z68.32 Body mass index [BMI] 32.0-32.9, adult; D72.829 Elevated white blood cell count, unspecified; T38.0X5A Adverse effect of glucocorticoids and synthetic analogues, initial encounter; Z82.49 Family history of ischemic heart disease and other diseases of the circulatory system; Z83.3 Family history of diabetes mellitus; Z20.828 Contact with and (suspected) exposure to other viral communicable diseases
CPT/HCPCS: 36415; 74176; 74250; 80048; 80053; 81001; 83690; 85025; 85610; 85730; 87426; 96365; 96367; 96375; C9113; G0378; J1956; J2405; J2543; J3490

== ENCOUNTER 2022-04-07 05:05 | Inpatient (IN) | payer MEDICAID ==
[~2022-04-07] VITALS: Ht 167.6 cm; Wt 104.5 kg
[~2022-04-07 05:05] MED LIST changes: +LEVO500T31 PO; +METR500T PO; -POLY335015 PO; +PRED20TA2 PO
[2022-04-07 07:00] LABS: Basophils # (auto) 0.1 10 ^3/uL (0-0.2); Basophils % (auto) 0.5 % (0.0-2.0); Eosinophils # (auto) 0.1 10 ^3/uL (0-0.8); Eosinophils % (auto) 0.8 % (0.0-7.0); Hematocrit 45.9 % (41.0-53.0); Hemoglobin 15.2 g/dL (13.5-17.5); Lymphocytes # (auto) 1.1 10 ^3/uL (0.4-5.4); Lymphocytes % (auto) 10.1 % (10.0-50.0); Mean Corpuscular Hemoglobin 27.3 pg (28.0-32.0); Mean Corpuscular Hgb Conc. 33.1 g/dL (32.0-36.0); Mean Corpuscular Volume 82.5 fL (80.0-100.0); Monocytes # (auto) 0.8 10 ^3/uL (0-1.3); Monocytes % (auto) 7.2 % (0.0-12.0); Neutrophils # (auto) 9.2 10 ^3/uL (1.6-8.6); Neutrophils % (auto) 81.4 % (37.0-80.0); Red Blood Cells 5.56 10^6/uL (4.5-5.90); Red Cell Distribution Width 14.4 % (11.8-14.3); White Blood Cell 11.3 10^3/uL (4.4-10.8)
[2022-04-07 07:19] LABS: Calcium 10.2 mg/dL (8.5-10.1); Potassium 4.3 mmol/L (3.5-5.1)
[2022-04-07] MEDS ORDERED: SODIUM CHLORIDE 0.9% 1,000 ML IVB ONE (07:30)
[2022-04-07] MEDS ORDERED: PROCHLORPERAZINE EDISYLATE 5 MG/ML 2ML VIAL IV ONE (07:30)
[2022-04-07] MEDS ORDERED: PANTOPRAZOLE 40 MG/10 ML VIAL INJ IV ONE (07:30)
[2022-04-07] MEDS ORDERED: HYDROmorphone HCL 2 MG/ML VL/or syr IV ONE (07:30)
[2022-04-07] MEDS ORDERED: methylPREDNISolone SOD SUCC 125 MG/2 ML VL IV ONE (07:30)
[2022-04-07] MEDS ORDERED: SODIUM CHLORIDE 0.9% 1,000 ML IV ONE (10:30)
[2022-04-07] MEDS ORDERED: MORPHINE SULFATE INJ 2 MG/ml SYRG IV PRN (10:30)
[2022-04-07] MEDS: SODIUM CHLORIDE 0.9% 1,000 ML IV SCH ×2 (11:17→19:08)
[2022-04-07] MEDS ORDERED: GASTROGRAFIN 120 ML SOL ONE (12:19)
[2022-04-07] MEDS: cefTRIAXone 1GM/50ML D5W 50 ML IV SCH (14:41)
[2022-04-07] MEDS: ONDANSETRON HCL 4 MG/2 ML VIAL IV PRN ×2 (14:41→19:50)
[2022-04-07] MEDS ORDERED: HYDROmorphone HCL 2 MG/ML VL/or syr ONE (20:01)
[2022-04-07] MEDS: HYDROmorphone HCL 2 MG/ML VL/or syr IV PRN (20:05)
[2022-04-08] MEDS: ONDANSETRON HCL 4 MG/2 ML VIAL IV PRN ×3 (03:09→13:24)
[2022-04-08] MEDS: HYDROmorphone HCL 2 MG/ML VL/or syr IV PRN ×4 (03:10→18:39)
[2022-04-08] MEDS: SODIUM CHLORIDE 0.9% 1,000 ML IV SCH ×2 (03:10→08:51)
[2022-04-08 04:46] LABS: Basophils # (auto) 0.1 10 ^3/uL (0-0.2); Basophils % (auto) 0.5 % (0.0-2.0); Eosinophils # (auto) 0 10 ^3/uL (0-0.8); Eosinophils % (auto) 0.2 % (0.0-7.0); Hematocrit 41.6 % (41.0-53.0); Hemoglobin 13.8 g/dL (13.5-17.5); Lymphocytes # (auto) 1.2 10 ^3/uL (0.4-5.4); Lymphocytes % (auto) 9.4 % (10.0-50.0); Mean Corpuscular Hemoglobin 27.1 pg (28.0-32.0); Mean Corpuscular Hgb Conc. 33.1 g/dL (32.0-36.0); Mean Corpuscular Volume 81.7 fL (80.0-100.0); Monocytes # (auto) 1.6 10 ^3/uL (0-1.3); Monocytes % (auto) 12.4 % (0.0-12.0); Neutrophils # (auto) 10.1 10 ^3/uL (1.6-8.6); Neutrophils % (auto) 77.5 % (37.0-80.0); Red Blood Cells 5.09 10^6/uL (4.5-5.90); Red Cell Distribution Width 14.7 % (11.8-14.3)
[2022-04-08 05:10] LABS: Albumin 3.2 g/dL (3.4-5.0); Calcium 8.6 mg/dL (8.5-10.1); Potassium 4.4 mmol/L (3.5-5.1)
[2022-04-08 05:13] LABS: BUN/Creatinine Ratio 24.7; Bilirubin, Total 0.5 mg/dL (0.2-1.0); Total Protein 7.2 g/dL (6.4-8.2)
[2022-04-08] MEDS: PANTOPRAZOLE 40 MG/10 ML VIAL INJ IV SCH (08:33)
[2022-04-08] MEDS: cefTRIAXone 1GM/50ML D5W 50 ML IV SCH (08:33)
[2022-04-08] MEDS: methylPREDNISolone SOD SUCC 40 MG/ML VL IV SCH ×2 (14:26→21:29)
[2022-04-08 17:00] VITALS: BP 125/78
[2022-04-08 22:00] VITALS: BP 133/75
[2022-04-09] MEDS: HYDROmorphone HCL 2 MG/ML VL/or syr IV PRN (00:29)
[2022-04-09 05:00] VITALS: BP 118/73
[2022-04-09] MEDS: methylPREDNISolone SOD SUCC 40 MG/ML VL IV SCH ×2 (06:04→13:46)
[2022-04-09 06:54] LABS: BUN/Creatinine Ratio 22.8; Calcium 9.3 mg/dL (8.5-10.1); Potassium 4.1 mmol/L (3.5-5.1)
[2022-04-09 08:00] VITALS: BP 128/90
[2022-04-09] MEDS: PANTOPRAZOLE 40 MG/10 ML VIAL INJ IV SCH (08:53)
[2022-04-09] MEDS: cefTRIAXone 1GM/50ML D5W 50 ML IV SCH (08:53)
[2022-04-09 09:00] VITALS: BP 128/90
[2022-04-09 13:00] VITALS: BP 144/99
[2022-04-09] MEDS ORDERED: PANT40TA2 PO (15:22)
[2022-04-09] MEDS ORDERED: PRED20TA2 PO (15:22)
[2022-04-09 16:49] VITALS: BP 140/84
[2022-04-09 19:59] VITALS: BP 136/84
== END 2022-04-09 20:15 | disposition home or self-care (01) | DRG 245 ==
LOC: ER 05:05 → OVERFLOW 10:29 → WEST WING 04-08 15:36
PROVIDERS: ADMIT Nurse Practitioner Family; ATTEND Nurse Practitioner Family
DX: K50.012 Crohn's disease of small intestine with intestinal obstruction (principal); D72.829 Elevated white blood cell count, unspecified; Z20.822 Contact with and (suspected) exposure to COVID-19; Z82.49 Family history of ischemic heart disease and other diseases of the circulatory system; Z83.3 Family history of diabetes mellitus; Z84.1 Family history of disorders of kidney and ureter
CPT/HCPCS: 36415; 74176; 80048; 80053; 83605; 83690; 85025; 87426; 96361; 96374; 96375; C9113; G0378; J0696; J2405